=== PATIENT | male | born 1995 | race Caucasian/White ===

== ENCOUNTER 2023-01-15 21:55 | Outpatient (CLI) | payer OTHER | END 2023-01-15 21:56 | disposition EMS.NT | LOC: EMS 21:55 | DX: S49.91XA Unspecified injury of right shoulder and upper arm, initial encounter (principal); V29.99XA Rider (driver) (passenger) of other motorcycle injured in unspecified traffic accident, initial encounter; Y92.414 Local residential or business street as the place of occurrence of the external cause ==

== ENCOUNTER 2023-01-15 23:16 | Emergency (ER) | payer OTHER ==
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
[2023-01-16 04:40] VITALS: BP 123/97; O2SAT 99
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
== END 2023-01-16 04:00 | disposition home or self-care (01) ==
LOC: ED 23:16
DX: S42.031A Displaced fracture of lateral end of right clavicle, initial encounter for closed fracture (principal); V29.99XA Rider (driver) (passenger) of other motorcycle injured in unspecified traffic accident, initial encounter
CPT/HCPCS: 99283; 99284

== ENCOUNTER 2023-04-01 12:48 | Outpatient (CLI) | payer OTHER ==
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
== END 2023-04-01 12:49 | disposition home or self-care (01) ==
LOC: DI 12:48
DX: M25.571 Pain in right ankle and joints of right foot (principal); M25.471 Effusion, right ankle